=== PATIENT | female | born 1950 | race Caucasian/White ===

== ENCOUNTER → 2023-08-01 12:03 | Outpatient (REF) | payer MEDICARE, OTHER, SELFPAY | LOC: HWCARD 12:03 | PROVIDERS: ATTENDING PHYSICIAN Pain Medicine Interventional Pain Medicine; FAMILY PHYSICIAN Family Medicine | DX: Z01.818 Encounter for other preprocedural examination (principal) | CPT/HCPCS: 93005 ==

== ENCOUNTER → 2024-01-02 14:13 | Outpatient (REF) | payer MEDICARE, OTHER, SELFPAY | LOC: HWWDC 14:13 | PROVIDERS: ATTENDING PHYSICIAN Obstetrics & Gynecology; FAMILY PHYSICIAN Family Medicine | DX: Z12.31 Encounter for screening mammogram for malignant neoplasm of breast (principal) | CPT/HCPCS: 77063; 77067 ==

== ENCOUNTER → 2025-01-06 13:56 | Outpatient (REF) | payer MEDICARE, OTHER, SELFPAY | LOC: HWWDC 13:56 | PROVIDERS: ATTENDING PHYSICIAN Obstetrics & Gynecology; FAMILY PHYSICIAN Family Medicine | DX: Z12.31 Encounter for screening mammogram for malignant neoplasm of breast (principal) | CPT/HCPCS: 77063; 77067 ==

== ENCOUNTER 2025-03-03 08:55 | Emergency (ER) | payer MEDICARE, OTHER, SELFPAY ==
[2025-03-03 08:58] VITALS: BP 146/85
--- NOTE | 2025-03-03 09:37 | ED.GENMED ---
History of Present Illness
General
Chief Complaint: Musculo-Skeletal Complaint
Time Seen by Provider: 03/03/25 09:26
History of Present Illness
History of Present Illness:
74-year-old female presents to the emergency department for evaluation of persistent right elbow redness and pain for the past 5 days. Denies any injuries or trauma. Saw orthopedics yesterday and was started on cephalexin, has taken 3 doses thus
far. Concerned that the symptoms are not improving today. No fevers or chills. No chest pain or shortness of breath.
Past History
Past History
ED Past Medical History: HTN and Psychiatric (Anxiety)
ED Past Surgical History: Cholecystectomy and Orthopedic
Social History
Tobacco: Non-smoker
Alcohol: None
Personal:
Living: with family
Employment: Employed
Family History
Family History: Hypertension; Negative Diabetes or Sudden
Review of Systems
Review of Systems
Allergies reviewed?: Yes
All Other Systems: ROS reviewed and negative except as documented in HPI and ROS
Phy Exam
Physical Exam
Physical Exam:
GEN: Well appearing, NAD, WDWN
HEENT: Oral mucosa moist, no scleral icterus
Cardiac: Regular rate
Lung: No respiratory distress, no tachypnea
MSK: Diffuse erythema to the right elbow with no palpable olecranon bursitis, no elbow effusion, range of motion predominantly limited by pain, passive range of motion fully intact, mild swelling extending to the forearm, right radial pulse is strong
Skin: Good color, no pallor or jaundice, no rashes
Neuro: AO x3, moves all extremities freely
Psych: Calm, cooperative
Course
Orders/Labs/Results
Orders:
Orders
03/03/25 09:37
CeFAZolin 2 GRAM [Ancef] 2 grams in 10 ml IV NOW
03/03/25 09:39
CBC/With Diff [Complete Blood Count/With Diff] Urgent
Comprehensive Metabolic Panel Urgent
Abnormal Lab Results
03/03/25
09:39
WBC 11.9 H 10^3/uL
(4.8-10.8)
Abs Immat Gran (auto) 0.1 H 10^3/uL
(0-0.05)
Absolute Neuts (auto) 10.0 H 10^3/uL
(1.4-6.5)
Absolute Lymphs (auto) 0.7 L 10^3/uL
(1.2-3.4)
Absolute Monos (auto) 1.0 H 10^3/uL
(0.1-0.6)
Neutrophils % 84.3 H %
(42.2-75.2)
Lymphocytes % 5.9 L %
(20.5-51.1)
Sodium 131 L mmol/L
(135-145)
BUN 24 H mg/dl
(7-17)
Creatinine 1.1 H mg/dL
(0.6-1.0)
Glucose 175 H mg/dl
(70-99)
03/03/25 09:39
03/03/25 09:39
Vital Signs
Initial and Last Documented VS:
Initial Vital Signs
Temp Pulse Resp BP Pulse Ox
98.5 F 77 16 146/85 96
03/03/25 08:58 03/03/25 08:58 03/03/25 08:58 03/03/25 08:58 03/03/25 08:58
Last Documented Vital Signs
Temp Pulse Resp BP Pulse Ox
98.2 F 65 20 114/52 95
03/03/25 10:27 03/03/25 10:27 03/03/25 10:27 03/03/25 10:27 03/03/25 10:27
MDM/Problems Addressed
MDM/Problems Addressed:
No evidence of septic bursitis at this time, no clinical signs of septic joint. Treated with single dose IV cefazolin and will continue oral Keflex
*Pulse Oximetry
SaO2: 96
Oxygen Mode of Delivery: Room air
Patient hypoxic: no
*Critical Care Note
Total Time (30-74mins, 75-104mins- exclusive of procedures): Not Applicable
ED Attending Note
-
Portions of this chart may have been created with voice recognition software.� Occasional wrong word or��sound alike� substitutions may have occurred due to the inherent limitations of voice recognition software.
Discharge Plan
Departure
Patient Disposition: Home (Routine Discharge)
Date of Disposition: 03/03/25
Time of Disposition: 10:21
Patient with high blood pressure during this ER visit?: No
Discharge Problem:
Cellulitis of right elbow
Instructions: Cellulitis (skin infection) in adults - ED (DC)
Prescriptions:
No Action
bisoprolol fumarate 10 MG tablet
10 mg PO DAILY
spironolacton-hydrochlorothiaz 25-25 mg Tablet
0.5 tab PO DAILY
Theragen Tablet
1 tab PO DAILY
alprazolam [Xanax] 0.25 mg Tablet
0.25 mg PO HS
famotidine [Pepcid] 20 mg Tablet
20 mg PO BID
cephalexin 500 mg Capsule
500 mg PO Q8H
Rx Instructions:
FOR 14 DAYS STARTING 03/02/25
candesartan 16 mg Tablet
16 mg PO QPM
ibuprofen [Advil] 200 mg Tablet
400 mg PO Q8HPRN PRN (Reason: MILD PAIN)
cholecalciferol (vitamin D3) [Vitamin D3] 25 mcg (1,000 unit) Tablet
25 mcg PO DAILY
Referrals:
Lizandro Mukherjee MD [Family Provider, Family Practice]
Activity Restrictions/Additional Instructions:
Continue cephalexin as prescribed
Elevate and ice elbow often
Return to the ED if symptoms do not improve in the next 48-72 hours, OR if you develop a fever
Interventions
Interventions:
*Risk Screen - Suicide Last Done: 03/03/25 08:58
*General Assessment Last Done: 03/03/25 08:58
*Neglect/Abuse Screening Last Done: 03/03/25 08:58
*ED- Fall Risk Assessment Last Done: 03/03/25 09:40
*ED COVID-19 Vaccine History Last Done: 03/03/25 09:40
*Nursing Disposition Last Done: 03/03/25 10:27
ED-Musculoskeletal Assessment Last Done: 03/03/25 09:30
Discharge Date and Time
Discharge Date/Time: 03/03/25 10:32
Print Language: CHINESE
[2025-03-03] MEDS: ANCEF 10 IV (09:43)
[2025-03-03 09:57] LABS: Hematocrit 37.2 % (37.0-47.0); Hemoglobin 12.6 g/dL (12.0-16.0); Mean Corp Hgb Conc. 33.9 g/dL (33.0-37.0); Mean Corpuscular Volume 88.6 fL (81.0-99.0); Nucleated Red Blood Cells % 0 %; Platelet Count 275 10^3/uL (130-400); Red Cell Dist. Width 13.2 % (11.5-14.5)
[2025-03-03 10:19] LABS: ALT (SGPT) 20 U/L (0-35); AST (SGOT) 22 U/L (14-36); Albumin 4.5 g/dl (3.5-5.0); Alkaline Phosphatase 61 U/L (38-126); Blood Urea Nitrogen 24 mg/dl (7-17); Calcium 9.5 mg/dl (8.4-10.2); Carbon Dioxide 23 mmol/L (22-30); Chloride 99 mmol/L (98-107); Glucose 175 mg/dl (70-99); Potassium 4.4 mmol/L (3.5-5.1); Sodium 131 mmol/L (135-145); Total Protein 7.1 g/dl (6.3-8.2); eGFR 52.73
[2025-03-03 10:27] VITALS: BP 114/52
== END 2025-03-03 10:32 | disposition home or self-care (01) ==
LOC: EMR 08:55
PROVIDERS: Physician Assistant; EMERGENCY PHYSICIAN Emergency Medicine; FAMILY PHYSICIAN Family Medicine
DX: L03.113 Cellulitis of right upper limb (principal); I10 Essential (primary) hypertension
CPT/HCPCS: 96374; 99284; 80053; 85025

== ENCOUNTER → 2025-03-12 15:27 | Outpatient (REF) | payer MEDICARE, OTHER, SELFPAY | LOC: HWRAD 15:27 | PROVIDERS: ATTENDING PHYSICIAN Orthopaedic Surgery; FAMILY PHYSICIAN Family Medicine | DX: M71.121 Other infective bursitis, right elbow (principal); M25.521 Pain in right elbow; L03.113 Cellulitis of right upper limb | CPT/HCPCS: 76882 ==